=== PATIENT | male | born 1960 | race Caucasian/White ===

== ENCOUNTER 2021-09-22 16:24 | Emergency (ER) | payer BC, OTHER ==
[~2021-09-22] VITALS: Ht 182.9 cm; Wt 102.1 kg
[~2021-09-22 16:24] MED LIST: ASTEPRO30 ML; Z.0.ALLOPURINOL100 M; Z.0.BENTYL10 MG; Z.0.CYCLOBENZAPRINE1; Z.0.DICYCLOMINE HCL1; Z.0.LORAZEPAM2 MG; Z.0.PAROXETINE HCL20; [UNRECOGNIZED DRUG - OTHER]; [UNRECOGNIZED DRUG - OTHER]; [UNRECOGNIZED DRUG - OTHER]
[2021-09-22] MEDS ORDERED: Morphine 4mg Syringe 4 MG/ML INJ IM ONE (17:30)
[2021-09-22] MEDS ORDERED: KETOROLAC TROMETHAMINE 60 MG/2 ML VIAL IM ONE (17:30)
[2021-09-22] MEDS ORDERED: ULTRACET TABLE1 EACH PO (18:11)
[2021-09-22] MEDS ORDERED: IBUPROFEN600 MG PO (18:11)
[2021-09-22 18:47] VITALS: BP 113/76
== END 2021-09-22 18:49 | disposition home or self-care (01) ==
LOC: ER 16:45
DX: S42.032A Displaced fracture of lateral end of left clavicle, initial encounter for closed fracture (principal); W01.0XXA Fall on same level from slipping, tripping and stumbling without subsequent striking against object, initial encounter; Y93.01 Activity, walking, marching and hiking; Y92.89 Other specified places as the place of occurrence of the external cause; B19.20 Unspecified viral hepatitis C without hepatic coma
CPT/HCPCS: 73030; 99283; J1885; J2270